=== PATIENT | female | born 1975 | race African-American/Black ===

== ENCOUNTER 2016-10-19 21:07 | Emergency (ER) | payer MEDICAID ==
[~2016-10-19] VITALS: Ht 167.6 cm; Wt 54.0 kg
[2016-10-19 21:10] VITALS: BP 113/70
== END 2016-10-20 00:23 | disposition left against medical advice (07) ==
LOC: ER 21:12
DX: Z53.21 Procedure and treatment not carried out due to patient leaving prior to being seen by health care provider (principal)